=== PATIENT | female | born 1995 | race Two or more races ===

== ENCOUNTER 2017-08-10 08:34 | Inpatient (IN) ==
[2017-08-10] MEDS ORDERED: MEPERIDINE 50 MG/1 ML VIAL IV PRN (10:33)
[2017-08-10] MEDS ORDERED: ONDANSETRON 4 MG/2 ML VIAL IV PRN (10:33)
[2017-08-10] MEDS: LACTATED RINGERS 1,000 ML IV SCH ×3 (11:02→19:05)
[2017-08-10] MEDS: BUTORPHANOL 2 MG/ML VIAL IV PRN ×2 (11:04→14:07)
[2017-08-10 11:10] LABS: Basophils % 0.2 % (0.0-0.8); Eosinophils # 0.1 10*3/uL (0.0-0.87); Eosinophils % 0.8 % (0.00-10.9); Hematocrit 32.9 VOL% (35.7-47.0); Hemoglobin 10.8 GM/DL (12.0-16.0); Immature Granulocytes % 0.7 %; Immature Granulocytes Absolute 0.09 #; Lymphocytes % 15.7 % (21.3-54.2); Mean Corpuscular HGB Conc 32.8 GM/DL (32-36); Mean Corpuscular Hemoglobin 28 PG (27-34); Mean Corpuscular Volume 84.6 FL (87-102); Mean Platelet Volume 10.6 FL (9.6-12.0); Monocytes # 0.7 10*3/uL (0.11-0.8); Monocytes % 5.8 % (1.7-12.7); Neutrophils # 9.9 10*3/uL (1.4-7.4); Neutrophils % 76.8 % (38.7-73.9); Platelet Count 328 T/CUMM (130-400); Red Blood Count 3.89 MC/CUMM (3.8-5.5); Red Cell Distribution Width 13.3 % (9.3-17.3); White Blood Count 12.8 T/CUMM (4-12)
[2017-08-10 11:32] LABS: Alanine Aminotransferase 13 U/L (13-56); Alkaline Phosphatase 282 U/L (45-117); Aspartate Amino Transferase 14 U/L (0-37); Bilirubin,Total < 0.39 MG/DL (0.2-1.0); Blood Urea Nitrogen 4 MG/DL (7-18); Calcium 8.6 MG/DL (8.5-10.1); Glucose 78 MG/DL (74-106); Osmolality,Calculated 268.8 MOS/KG (273-304); Potassium 3.6 MMOL/L (3.5-5.1); Sodium 137 MMOL/L (136-145); Total Protein 6.8 G/DL (6.4-8.3)
[2017-08-10] MEDS: OXYTOCIN/LR 20 UNIT/1,000 ML BAG IV SCH ×2 (13:38→20:45)
[2017-08-10] MEDS ORDERED: ONDANSETRON 4 MG/2 ML VIAL IV ONE (15:53)
[2017-08-10] MEDS ORDERED: LACTATED RINGERS 1,000 ML IV ONE (15:53)
[2017-08-10] MEDS ORDERED: CITRIC ACID/SODIUM CITRATE 30 ML UDCUP PO ONE (15:53)
[2017-08-10] MEDS ORDERED: ePHEDrine 50 MG/ML AMP IV PRN (15:53)
[2017-08-10] MEDS ORDERED: PROMETHAZINE 25 MG/1 ML VIAL IM ONE (15:53)
[2017-08-10] MEDS ORDERED: diphenhydrAMINE 50 MG/1 ML VIAL IV PRN ×2 (15:53)
[2017-08-10] MEDS ORDERED: hydrOXYzine HCL 25 MG/1 ML VIAL IM PRN (15:53)
[2017-08-10] MEDS ORDERED: FAMOTIDINE 20 MG/2 ML VIAL IV ONE (15:53)
[2017-08-10] MEDS ORDERED: fentaNYL 2 MCG/ROPIV 0.2% EPID 150 ML EPIDURAL SCH (16:00)
[2017-08-10 17:23] LABS: Apearance,Urine CLEAR (Clear); Bacteria,Urine Occasional /HPF (Few); Bilirubin,Urine Negative (Negative); Blood, Urine Negative (Negative); Glucose,Urine (UA) Negative (Negative); Ketones,Urine 80 mg/dL (Negative); Mucus,Urine Few /LPF (Occasional); Nitrite,Urine Negative (Negative); Protein,Urine 30 MG/DL; RBC,Urine 1 /HPF (0-4); Renal Epithelial Cells,Urine Occasional /HPF (<1); Squamous Epithelial Cell,Urine Occasional /HPF (0-10); Urine Color Yellow (Yellow); Urine Specific Gravity 1.018 (1.001-1.035); Urine Urobilinogen < 2.0 EU/DL (0.2-1.0); WBC,Urine 1 /HPF (0-6)
[2017-08-10] MEDS ORDERED: METHYLERGONOVINE 0.2 MG/1 ML AMP ONE (19:29)
[2017-08-10] MEDS ORDERED: miSOPROStol 200 MCG TABLET ONE (19:30)
[2017-08-10 20:11] LABS: Cord Arterial Blood HCO3 21.8 MMOL/L
[2017-08-10 20:16] LABS: Cord Venous Blood HCO3 18.5 MMOL/L; Cord Venous Blood PCO2 49.4 MMHG; Cord Venous Blood PO2 25.9
[2017-08-11] MEDS ORDERED: WITCH HAZEL PADS 100/JAR TOP PRN (00:36)
[2017-08-11] MEDS ORDERED: BISACODYL 10 MG SUPP RECTAL PRN (00:36)
[2017-08-11] MEDS ORDERED: ACETAMINOPHEN 325 MG TABLET PO PRN (00:36)
[2017-08-11] MEDS ORDERED: LANOLIN 50% CREAM 0.3 OZ TUBE TOP PRN (00:36)
[2017-08-11] MEDS ORDERED: DIPH/TET/ACEL PERT BOOSTER VACCINE 0.5 ML VIAL IM ONE (00:36)
[2017-08-11] MEDS ORDERED: oxyCODONE/ACETAMINOPHEN 5-325 MG TABLET PO PRN ×2 (00:36)
[2017-08-11] MEDS ORDERED: BENZOCAINE 20%/MENTHOL 0.5% SPRAY 56 GM CAN TOP PRN (00:36)
[2017-08-11] MEDS ORDERED: OXYTOCIN/LR 20 UNIT/1,000 ML BAG IV ONE (00:36)
[2017-08-11] MEDS ORDERED: RHO(D) IMMUNE GLOBULIN 300 MCG SYRINGE IM ONE (00:36)
[2017-08-11] MEDS ORDERED: HYDROCORTISONE 2.5% RECTAL CREAM 30 GM TUBE TOP PRN (00:36)
[2017-08-11] MEDS ORDERED: MEASLES/MUMPS/RUBELLA VACCINE 0.5 ML VIAL SUBCUT ONE (00:36)
[2017-08-11] MEDS ORDERED: ONDANSETRON 4 MG/2 ML VIAL IV PRN (00:36)
[2017-08-11] MEDS: DOCUSATE SODIUM 100 MG CAPSULE PO SCH ×3 (00:58→20:19)
[2017-08-11] MEDS: IBUPROFEN 800 MG TABLET PO PRN ×2 (03:37→20:19)
[2017-08-11 03:46] LABS: Basophils % 0.2 % (0.0-0.8); Eosinophils % 0.1 % (0.00-10.9); Hematocrit 28.6 VOL% (35.7-47.0); Hemoglobin 9.5 GM/DL (12.0-16.0); Immature Granulocytes % 0.8 %; Immature Granulocytes Absolute 0.15 #; Lymphocytes % 10.1 % (21.3-54.2); Mean Corpuscular HGB Conc 33.2 GM/DL (32-36); Mean Corpuscular Hemoglobin 28 PG (27-34); Mean Corpuscular Volume 82.7 FL (87-102); Mean Platelet Volume 10.5 FL (9.6-12.0); Monocytes # 1.3 10*3/uL (0.11-0.8); Monocytes % 6.6 % (1.7-12.7); Neutrophils # 16.3 10*3/uL (1.4-7.4); Neutrophils % 82.2 % (38.7-73.9); Platelet Count 287 T/CUMM (130-400); Red Blood Count 3.46 MC/CUMM (3.8-5.5); Red Cell Distribution Width 13.4 % (9.3-17.3); White Blood Count 19.8 T/CUMM (4-12)
[2017-08-11] MEDS: ACETAMINOPHEN 325 MG TABLET PO PRN ×2 (12:15→17:45)
[2017-08-12] MEDS: LACTATED RINGERS 1,000 ML IV SCH (02:35)
[2017-08-12 09:03] VITALS: BP 126/68
[2017-08-12] MEDS: DOCUSATE SODIUM 100 MG CAPSULE PO SCH (09:18)
== END 2017-08-12 12:10 | disposition home or self-care (01) | DRG 775 ==
LOC: N.LDOUT 08:34 → N.LD 08:38 → N.OB 23:48
PROVIDERS: ADMIT Obstetrics & Gynecology; ATTEND Obstetrics & Gynecology